=== PATIENT | female | born 1940 | race Caucasian/White ===

== ENCOUNTER 2016-03-31 10:24 | Inpatient (IN) | payer OTHER ==
[2016-03-31] MEDS ORDERED: 1/2 NS 1,000 ML ONE (11:07)
[2016-03-31 11:31] LABS: MANUAL DIFF NEEDED? NO
[2016-03-31 11:35] LABS: BASO% 0.3 % (0.0-0.8); EOS# 0.18 X1000 (0.0-0.7); EOS% 2.9 % (0.0-10.0); HEMATOCRIT 34.2 % (37.0-47.0); HEMOGLOBIN 11.1 g/dL (12.0-16.0); LYMPH# 1.44 X1000 (1.2-3.4); LYMPH% 23.5 % (20.5-51.1); MCH 30.9 PG (27-31); MCHC 32.5 g/dL (33-37); MCV 95.3 FL (81-99); MONO# 0.71 X1000 (0.11-0.59); MONO% 11.6 % (1.7-9.3); MPV 9.6 FL (7.4-10.4); NEUT% 61.7 % (42.2-75.2); PLT 265 X1000 (130-400); RBC 3.59 XMIL (4.2-5.4)
[2016-03-31] MEDS ORDERED: NORCO-5 PO PRN (11:44)
--- NOTE | 2016-03-31 12:10 | EKG Report ---
Test Performed on : 03/31/2016 11:13:37 AM Test Reason : right leg weakness, dehydration Blood Pressure : / mmHG Vent. Rate : 062 BPM Atrial Rate : 062 BPM P-R Int : 156 ms QRS Dur : 104 ms QT Int : 412 ms P-R-T Axes : 078 059 061 degrees QTc Int : 418 ms Normal sinus rhythm. Cannot rule out Inferior infarct , age undetermined Nonspecific T wave abnormality aVL Abnormal ECG No previous ECGs available Confirmed by Surendra Tilley DO ([id number]) on 03/31/2016 6:55:44 PM
--- NOTE | 2016-03-31 12:12 | Diag Imaging Result Document ---
PROCEDURE NAME: HEAD W/O CONTRAST - 03/31/[address]: COMPARISON: None. FINDINGS: There is moderate diffuse atrophy. There may be some mild ventriculomegaly. There is mild periventricular white matter chronic microvascular disease. No intracranial mass or hemorrhage. The skull is intact. There is opacification of the right maxillary sinus compatible with sinusitis. IMPRESSION: 1. Cerebral atrophy and minimal chronic microvascular disease. 2. Moderate ventriculomegaly. 3. Right maxillary sinusitis.
[2016-03-31 12:31] LABS: AGAP 16; ALBUMIN 3.6 g/dL (3.5-5.0); ALKALINE PHOSPHATASE 112 U/L (32-104); BUN 18 mg/dL (8-22); CALCIUM 8.8 mg/dL (8.8-10.2); CHLORIDE 106 mmol/L (98-107); COSMO 288; GOT 25 U/L (10-30); GPT 35 U/L (10-36); POTASSIUM 4.1 mmol/L (3.5-5.1); SODIUM 144 mmol/L (136-145); TCO2 22 mmol/L (25-35); TOTAL BILIRUBIN 0.51 mg/dL (0.20-1.00); TOTAL PROTEIN 6.4 g/dL (6.3-8.3)
[2016-03-31] MEDS ORDERED: CALMOSEPTINE OINTMENT TOP PRN (14:10)
--- NOTE | 2016-03-31 14:38 | Diag Imaging Result Document ---
PROCEDURE NAME: CHEST-PORTABLE - 03/31/2016 SINGLE FRONTAL RADIOGRAPH OF THE CHEST: COMPARISON: None available. FINDINGS: There is a calcified granuloma in the periphery of the right lower lung zone. The lungs are grossly clear, otherwise. There is no definite pleural fluid collection. Central vasculature is grossly unremarkable. Cardiac silhouette appears to be within normal limits accounting for magnification due to portable technique. IMPRESSION: No definite acute pathology.
[2016-03-31 15:10] LABS: URINE MICRO REVIEW NEEDED? NO; URINE SOURCE CATH
[2016-03-31 15:14] LABS: BILIRUBIN URINE NEGATIVE (NEGATIVE); BLOOD URINE NEGATIVE (NEGATIVE); COLOR ORANGE; GLUCOSE URINE NEGATIVE (NEGATIVE); LEUKOCYTES URINE SMALL (NEGATIVE); NITRITE URINE POSITIVE (NEGATIVE); PROTEIN URINE TRACE mg/dL (NEGATIVE); SP GRAVITY URINE 1.018; TURBIDITY URINE HAZY (CLEAR); UROBILINOGEN URINE NORMAL (NORMAL)
[2016-03-31 15:15] LABS: UR EPITHELIAL CELLS >10 /HPF (<10); URINE BACTERIA 4+ /HPF; URINE RBC <10 /HPF (<10)
--- NOTE | 2016-03-31 18:43 | HISTORY AND PHYSICAL ---
HISTORY OF PRESENT ILLNESS: Ms. Holloway is a 75-year-old white female, lately has been staying very confused and disoriented for the last 2-3 days and she has stopped walking for last 5 days. She has been falling at home and has difficulty in walking. She also has not been eating and has been getting dehydrated and she is admitted here for change in mental status and weakness in the legs. PAST SURGICAL HISTORY: She has a history of right hip fracture and surgery in [place] and she had a hysterectomy performed a long time ago by Dr. Phillips in [place], [place]. MEDICATIONS: She has been found to have diabetes and has been on metformin. She also took Sinemet 25-50 a few months ago. She has been taking [place] thyroid for hypothyroidism. SOCIAL HISTORY: She is a nonsmoker. Does not drink. ALLERGIES: She is not allergic to any medication. REVIEW OF SYSTEMS: The patient is somewhat confused and disoriented and according to the family she is more confused for the last 3 days and has stopped walking. She has frequent falls. She cannot ambulate at all now. In general, she is very weak. PHYSICAL EXAMINATION: VITAL SIGNS: Reveal temperature 98.2 degree Fahrenheit, pulse 76 per minute, respiratory rate 20 per minute, blood pressure 175/80. HEENT: Head normocephalic. Pupils PERRLA. Fundus examination could not be done. NECK: Supple. JVP normal. ENT examination unremarkable. There is no evidence of lymphadenopathy, thyroid enlargement, pedal edema, calf tenderness, anemia, cyanosis or clubbing. Pedal pulses are well felt. BREASTS: Exam normal. CHEST: Normal inspection. Lungs are clear on auscultation. PMI in the 5th intercostal space, outside the midclavicular line. HEART: Sounds normal. No murmur, gallop or rub noted. ABDOMEN: Nondistended. Hernial orifices normal. No guarding, rigidity, free fluid, masses, or organomegaly. Bowel sounds normal. RECTAL: Deferred. RETAIL CLERK: Higher functions, the patient is disoriented and confused. Cranial nerves grossly normal. Motor and sensory system examination reveals weakness in both lower extremities with some incoordination. The patient has more weakness on the left side at the present time. According to the family, there was more weakness on the right side earlier. The sensory examination is normal. Deep tendon reflexes are sluggish. Plantars downgoing. Skull and spine examination normal for age. No cerebellar signs or signs of meningeal irritation. Locomotor exam reveals painful movements of both hips. SKIN: Examination reveals presence of dehydration. CLINICAL IMPRESSION: 1. Mental status change. 2. Dehydration. 3. Patient has maturity onset diabetes. 4. Possible mild Parkinson disease. PLAN: Get the computed tomography scan. Start IV fluids. Neurologic checks.
[2016-03-31] MEDS: HUMALOG SUBQ SCH (21:50)
[2016-03-31] MEDS: 1/2 NS 1,000 ML IV SCH (22:27)
[2016-04-01] MEDS: 1/2 NS 1,000 ML IV SCH ×2 (01:06→20:21)
[2016-04-01] MEDS: HUMALOG SUBQ SCH ×2 (06:01→20:34)
--- NOTE | 2016-04-01 09:32 | PROGRESS NOTE ---
DATE: 04/01/2016 Ms. Holloway is improving. She still has weakness in both legs, more on the left side actually. She has some parkinsonian type of rigidity and tremor in the right upper extremity. She has intermittent confusion. CT scan shows significant cerebral atrophy with dilatation of ventricles. She has dehydration, mild UTI. We will get a neurology consultation and start IV Levaquin.
[2016-04-01] MEDS: M.V.I.-12 10 ML, FOLIC ACID 1 MG, MAGNESIUM SULFATE 1 GM, THIAMINE 100 MG in NS 1,000 ML IV SCH (11:09)
[2016-04-01] MEDS: PRINIVIL PO SCH (11:09)
[2016-04-01] MEDS: GLUCOPHAGE XR PO SCH (11:09)
--- NOTE | 2016-04-01 13:48 | CONSULTATION ---
DATE OF CONSULTATION: 04/01/2016 HISTORY OF PRESENT ILLNESS: Ms. Holloway is 75 years old. History is taken from her attentive at the bedside and from review of available hospital record. reports she seemed more forgetful and began having trouble with her gait a few years ago. This has been gradually progressive, some days much worse than others. About 2 weeks ago, she seemed abruptly much worse, more confused, more unsteady with walking and she had some falls. Sometimes, she seems weaker in the left leg and sometimes she seems weaker in the right leg. There is not a definite history of unconsciousness or altered awareness. The recent change was not associated with medication changes, head injury, change in living arrangements, other problem. She has poor appetite and poor intake recently. She presented with evidence of dehydration. reports she took medicine for Parkinson disease. I believe that was carbidopa/levodopa in the past and he reports she was not improved with that management. I do not have documentation of the dose or duration of that trial. does not believe she ever had prescription medicines specifically to help memory. She tried [id number] product, Prevagen for a short time without apparent benefit. DIAGNOSTIC STUDIES: Workup includes noncontrast CT of the head here, reported unremarkable. Showing typical age-related changes, but nothing focal or acute. believes that she had MRI scan done in [place] in recent years, but I do not have that record. NEUROLOGIC EXAM: On exam now, she is awake, alert, attentive. She answered simple questions correctly. She identified her . She named the hospital correctly. She could not tell me the day of the week. She guessed the name of the month incorrectly. She did not name the president or discuss recent news. Her responses were generally slow. Speech is minimally dysarthric, but easily understood. Language function appears intact on bedside testing. Head is unremarkable. There is some rigidity in the neck, typical for expected age- related degenerative spine changes, but there is not meningismus. She has full visual field tested grossly by confrontational finger counting. Extraocular movements are full laterally. She has diminished upgaze. Facial motility is a little bit diminished on the left. Gag is intact. Tongue is midline. She can hear. She has good shoulder shrug bilaterally. Tone is increased in the left arm more than the right. She did rapid alternating movements better with the right hand than the left. She did better with right hand on [id number] testing. She has good power in the right limbs. On the left, she is very slow to generate full effort, but demonstrated at least 4/5 power in the left arm and leg. Plantar response is silent bilaterally. Reflexes are absent at the ankles and 1+ at the wrists bilaterally. I did not test her gait. PAST MEDICAL HISTORY: She has past history of hypothyroidism treated chronically. She has diabetes mellitus treated with metformin. believes that she took daily aspirin regularly for awhile and stopped that in recent months. Systolic blood pressures have ranged 150s to 180s. She has started lisinopril here. IMPRESSION: 1. Reported 2 year history (probably greater) of gradual decline with gait and cognitive function. She presents now with tonal asymmetry, left arm stiffer than the right. She has some parkinsonian features, but apparently did not respond significantly to Sinemet trial. We might consider trying dopaminergic medicines again. 2. She clearly has cognitive impairment. This is likely major cognitive impairment/dementia. We might consider cholinesterase inhibitor trial. 3. She has clinical evidence of peripheral neuropathy, presumed diabetic neuropathy. That may be contributing to her unsteady gait, but is likely not a significant cause for her recent difficulty. RECOMMENDATION: If not previously tried, I think we should give her cholinesterase inhibitor such as donepezil. If we do not have the report of recent MRI, I think we could get MRI done here for reassurance. This is particularly important in light of her focal findings on exam. I would continue physical therapy. Depending on her clinical course, we might carefully try levodopa again. Thanks for asking me to see Ms. Holloway. [facility]
[2016-04-01] MEDS ORDERED: DULCOLAX PR PRN (18:48)
[2016-04-02] MEDS: 1/2 NS 1,000 ML IV SCH ×3 (05:58→14:58)
[2016-04-02] MEDS: HUMALOG SUBQ SCH ×5 (06:02→21:18)
[2016-04-02 06:39] LABS: AGAP 13; BUN 18 mg/dL (8-22); CALCIUM 8.6 mg/dL (8.8-10.2); CHLORIDE 105 mmol/L (98-107); COSMO 279; POTASSIUM 3.9 mmol/L (3.5-5.1); SODIUM 139 mmol/L (136-145); TCO2 21 mmol/L (25-35)
--- NOTE | 2016-04-02 09:42 | PROGRESS NOTE ---
DATE: 04/02/2016 Ms. Holloway is improving. She is supposed to get physical therapy. She was seen by Dr. Hernandez yesterday. I am ordering MRI of the brain without contrast today. Her legs are still weak and we will continue with physical therapy.
[2016-04-02] MEDS: M.V.I.-12 10 ML, FOLIC ACID 1 MG, MAGNESIUM SULFATE 1 GM, THIAMINE 100 MG in NS 1,000 ML IV SCH (09:58)
[2016-04-02] MEDS: GLUCOPHAGE XR PO SCH (09:58)
[2016-04-02] MEDS: PRINIVIL PO SCH (09:58)
--- NOTE | 2016-04-02 10:28 | Diag Imaging Result Document ---
PROCEDURE NAME: MRI BRAIN W W/O CONTRAST - 04/02/2016 MRI OF THE BRAIN WITH AND WITHOUT GADOLINIUM: FINDINGS: There are patchy areas of increased T2-weighted signal intensity around the periventricular white matter, particularly in the frontal horns and the areas around the atria of the lateral ventricles. There are also rounded areas of increased T2 and FLAIR signal intensity in the subcortical white matter, particularly over the parietal convexities. There are no previous MRI studies. There is no evidence of restricted diffusion to indicate an acute infarct. No evidence of bleed or abnormal extraaxial fluid collection is present. There is mild cerebral and cerebellar atrophy. No abnormal gadolinium enhancement is present. IMPRESSION: No evidence of acute disease. Chronic microvascular changes and atrophy.
--- NOTE | 2016-04-02 11:30 | PROGRESS NOTE ---
DATE: 04/02/2016 SUBJECTIVE: Ms. Holloway is a little bit brighter today. She was a little bit more attentive. Speech may be a little bit stronger. I did not notice definite resting tremor on brief time at the bedside today. There is nothing new neurologically. I do not have any new suggestion to add to recommendations from yesterday. Thanks for allowing me to follow Ms. Holloway.
[2016-04-03] MEDS: 1/2 NS 1,000 ML IV SCH ×3 (01:33→20:39)
[2016-04-03] MEDS: HUMALOG SUBQ SCH ×4 (06:50→20:38)
[2016-04-03] MEDS: M.V.I.-12 10 ML, FOLIC ACID 1 MG, MAGNESIUM SULFATE 1 GM, THIAMINE 100 MG in NS 1,000 ML IV SCH (09:52)
[2016-04-03] MEDS: PRINIVIL PO SCH (09:53)
[2016-04-03] MEDS: GLUCOPHAGE XR PO SCH (09:53)
[2016-04-03] MEDS: MACROBID PO SCH ×2 (09:56→20:38)
--- NOTE | 2016-04-03 11:38 | PROGRESS NOTE ---
DATE: 04/03/2016 SUBJECTIVE: The patient is confused and really cannot answer questions well, but she did smile at me. I asked her if she was hurting anywhere, and she said, "no." OBJECTIVE: Blood pressure is 154/90, respirations 18, pulse 76, temperature 98.3 degrees Fahrenheit. HEENT: She is normocephalic. Throat clear. Lungs clear to auscultation and percussion without rhonchi, rales or wheezes. Heart is regular rate and rhythm without murmur, gallop, click or rub. Abdomen: Soft with active bowel sounds. No organomegaly or tenderness. The patient is stronger on her right side than her left side. DIAGNOSTIC DATA: Urinalysis was abnormal. Her urine culture grew E. coli sensitive to all antibiotics. I have started Macrobid today. ASSESSMENT: 1. Altered mental status with dementia. 2. Focal weakness on left side of the body. Note an MRI scan did not show evidence of CVA, tumor or aneurysm. 3. Urinary tract infection. PLAN: We will treat the urinary tract infection. Dr. Hernandez has seen her about the altered mental status and the weakness.
[2016-04-04] MEDS: HUMALOG SUBQ SCH ×3 (06:43→21:26)
[2016-04-04] MEDS ORDERED: MILK OF MAGNESIA PO ONE (09:47)
[2016-04-04] MEDS: M.V.I.-12 10 ML, FOLIC ACID 1 MG, MAGNESIUM SULFATE 1 GM, THIAMINE 100 MG in NS 1,000 ML IV SCH (10:00)
[2016-04-04] MEDS: PRINIVIL PO SCH (10:01)
[2016-04-04] MEDS: MACROBID PO SCH ×2 (10:01→21:25)
[2016-04-04] MEDS: GLUCOPHAGE XR PO SCH (10:12)
--- NOTE | 2016-04-04 10:15 | PROGRESS NOTE ---
DATE: 04/04/2016 SUBJECTIVE: The patient is confused but alert and seems to be happy. Has no complaints. She does have dementia. She is moving all 4 extremities. OBJECTIVE: Vital Signs: Blood pressure 155/67, respirations 16, pulse 68, temperature 98.4 degrees Fahrenheit. HEENT: She is normocephalic. EOMs intact. PERRLA. Throat clear. Lungs: Clear to auscultation and percussion without rhonchi, rales, or wheezes. Heart: Regular rate and rhythm without murmurs, gallops, or friction rubs. Abdomen: Soft. Active bowel sounds. No organomegaly or tenderness. Neurological Examination: Patient seems somewhat generalized weak on all 4 extremities but moving all 4 extremities. They seemed fairly equal today. says that she has not had a bowel movement in about 4 days and that she usually has to take something at home for a bowel movement. ASSESSMENT: 1. Generalized weakness with focal signs on the left side. 2. Urinary tract infection. 3. Dementia. 4. Constipation. PLAN: We will add medications for her constipation and continue her antibiotic.
[2016-04-04] MEDS: MIRALAX PO SCH (13:07)
[2016-04-04] MEDS: 1/2 NS 1,000 ML IV SCH ×3 (17:04→23:25)
[2016-04-05] MEDS: 1/2 NS 1,000 ML IV SCH ×3 (04:42→23:42)
[2016-04-05] MEDS: HUMALOG SUBQ SCH ×5 (07:24→22:03)
[2016-04-05] MEDS ORDERED: FLEET ENEMA PR ONE (08:50)
[2016-04-05] MEDS ORDERED: LEVAQUIN 500 MG/D5W 100 ML IV SCH (09:00)
--- NOTE | 2016-04-05 09:12 | PROGRESS NOTE ---
DATE: 04/05/2016 Ms. Holloway continues to have constipation. She has E. coli UTI. She has a knot on her right cheek. She wants something done about it. She continues to have mild dehydration. Oral intake is better. The family now indicates that she needs to go to rehab. Physical therapy has not helped much yet. It is going to be a long-term physical therapy, at least for 21 days at rehab. We will contact school social worker for this.
[2016-04-05] MEDS: MIRALAX PO SCH (10:34)
[2016-04-05] MEDS: MACROBID PO SCH ×2 (10:34→22:05)
[2016-04-05] MEDS: PRINIVIL PO SCH (10:35)
[2016-04-05] MEDS: GLUCOPHAGE XR PO SCH (10:40)
[2016-04-05] MEDS: M.V.I.-12 10 ML, FOLIC ACID 1 MG, MAGNESIUM SULFATE 1 GM, THIAMINE 100 MG in NS 1,000 ML IV SCH (10:51)
[2016-04-06] MEDS: HUMALOG SUBQ SCH ×2 (06:56→11:25)
[2016-04-06 07:31] VITALS: BP 153/69
[2016-04-06] MEDS: M.V.I.-12 10 ML, FOLIC ACID 1 MG, MAGNESIUM SULFATE 1 GM, THIAMINE 100 MG in NS 1,000 ML IV SCH (08:17)
[2016-04-06] MEDS: MIRALAX PO SCH (08:18)
[2016-04-06] MEDS: PRINIVIL PO SCH (08:18)
[2016-04-06] MEDS: MACROBID PO SCH (08:18)
[2016-04-06] MEDS: GLUCOPHAGE XR PO SCH (08:19)
--- NOTE | 2016-04-06 09:04 | DISCHARGE SUMMARY ---
ADMISSION DATE: 03/31/2016 DISCHARGE DATE: 04/06/2016 HISTORY OF PRESENT ILLNESS: Ms. Holloway was admitted with mental status change. She has diabetes. Her CT scan of the brain revealed cerebral atrophy with dilatation of the ventricles, right maxillary sinusitis. Brain MRI did not reveal any new changes. Chest x-ray was unremarkable. EKG was unremarkable. LABORATORY DATA: Revealed hemoglobin 11.1, indicating mild anemia. Blood sugars are normal. Urinalysis revealed 15-20 WBCs, less than 10 RBCs. Microbiology revealed E. coli sensitive to Levaquin. COURSE IN THE HOSPITAL: She was given IV fluids. Levaquin was started. Physical therapy was ordered. Dr. Hernandez was consulted. He agreed with the current management. Thought that her mental status change was secondary from dementia, developing dementia with mild dehydration, and a UTI. 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 Physical therapy was recommended which has been given to her. She will be transferred to [facility] today. We will give her Levaquin 750 mg daily for 5 days. Activities as tolerated. I will follow her there.
--- NOTE | 2016-04-06 09:05 | PROGRESS NOTE ---
DATE: 04/06/2016 SUBJECTIVE: Ms. Holloway is doing better. Her dehydration has cleared up. She was seen by Dr. Barboza yesterday for the place on her cheek. We are going to hold on the surgery for the time being. It appears like it is somewhat deeper. Her MRI did not show any new changes, other than what was revealed by CAT scan. Overall condition is unchanged. We will transfer her to [facility] if we have a bed.
== END 2016-04-06 11:59 | DRG 884 ==
LOC: DIRADM 10:24 → EDIPHOLD 10:25 → 4N 11:02 → DIRADM 04-01 14:04 → 4N 04-01 14:06
PROVIDERS: ADMIT Internal Medicine; ATTEND Internal Medicine
DX: F03.90 Unspecified dementia, unspecified severity, without behavioral disturbance, psychotic disturbance, mood disturbance, and anxiety (principal); E11.40 Type 2 diabetes mellitus with diabetic neuropathy, unspecified; N39.0 Urinary tract infection, site not specified; E86.0 Dehydration; E03.9 Hypothyroidism, unspecified; B96.20 Unspecified Escherichia coli [E. coli] as the cause of diseases classified elsewhere; K59.00 Constipation, unspecified; Z91.81 History of falling; Z79.84 Long term (current) use of oral hypoglycemic drugs; Z79.899 Other long term (current) drug therapy
CPT/HCPCS: 70450; 70553; 71010; 80048; 80053; 81001; 82948; 85025; 87077; 87088; 87186; 93005; 93010; A9579; J3411; J3475; J7030; 97001-GP; 97110-GP; 97530-GP